=== PATIENT | male | born 1965 | race Caucasian/White ===

== ENCOUNTER 2018-04-25 09:26 | Emergency (ER) | payer OTHER ==
[~2018-04-25] VITALS: Ht 190.5 cm; Wt 81.7 kg
== END 2018-04-25 11:20 | disposition home or self-care (01) ==
LOC: ED 09:26
PROC: 0T9B70Z Drainage of Bladder with Drainage Device, Via Natural or Artificial Opening (ICD-10-PCS; principal; 2018-04-25)
DX: R10.13 Epigastric pain (principal)
CPT/HCPCS: 51701; 74177; 80053; 81001; 82150; 83690; 85025; 96361; 96374; 96375; 99284; J2405; J7030; Q9967